=== PATIENT | male | born 1980 | race Caucasian/White ===

== ENCOUNTER 2025-06-22 08:53 | Emergency (ER) | payer BC, OTHER, SELFPAY ==
--- NOTE | ~2025-06-22 | US_ITS ---
EXAMINATION: US venous doppler [facility] DATE: 06/22/2025 10:20 INDICATION: Left lower limb pain. TECHNIQUE: Grayscale ultrasound images without and with compression and Doppler ultrasound images of the left lower extremity veins were obtained. COMPARISON: None. FINDINGS: The visualized portions of left common femoral vein, profunda (deep) femoral vein, femoral vein, popliteal vein, peroneal veins, posterior tibial veins, and greater saphenous vein outflow are patent. IMPRESSION: 1. No deep venous thrombosis. Reviewed, dictated and finalized at location E.
--- NOTE | ~2025-06-22 | XR_ITS ---
EXAMINATION: XR chest 2V, 06/22/2025 9:34 CDT HISTORY: CP X YESTERDAY COMPARISON: No comparisons available. Technique: 2 views obtained. Findings: The lungs are clear, no effusion. No pneumothorax. Heart is normal size. Mediastinal and hilar contours are within normal limits. Bony thorax no acute abnormality. Impression: No acute cardiopulmonary abnormality. Reviewed, dictated and finalized at location P. Impression: No acute cardiopulmonary abnormality.
[2025-06-22 08:58] VITALS: BP 162/105; PULSE 86; RESP 23; TEMP 37.1; O2SAT 99
--- NOTE | 2025-06-22 09:01 | ECG_ITS ---
Test Date: 2025-06-22 09:03:28 Measurements Intervals [place] Rate: 84 P: 26 HI: 166 QRS: -36 QRSD: 148 T: 9 QT: 408 QTc: 483 Interpretive Statements SINUS RHYTHM MARKED LEFT AXIS DEVIATION [QRS AXIS < -30] RIGHT BUNDLE BRANCH BLOCK [120+ ms QRS DURATION, UPRIGHT V1, 40+ ms S IN I/aVL/V4/V5/V6] No previous ECG available for comparison Electronically Signed On 06-22-2025 10:29:21 CDT by Dre Raya M.D.
--- NOTE | 2025-06-22 09:07 | ED.LOWEXIN ---
HPI - Extremity Injury (Lower) General Chief Complaint: Extremity Injury, Lower Stated Complaint: from UC, r/o DVT Time Seen by Provider: 06/22/25 09:07 Source: patient Mode of arrival: ambulatory Limitations: no limitations History of Present Illness HPI Narrative: This is a 45 year old male that presents to the ER for chest discomfort. Reports feels like a pressure. Has been constant since last night. Also reports left calf and lower leg pain. Reports a recent right shoulder surgery which concerned him and prompted him to be seen for possible blood clots. Denies fever, cough, shortness of breath, lower extremity edema. Related Data Home Medications ?Medication ?Instructions ?Recorded ?Confirmed ?Last Taken ?Type allopurinol 300 mg tablet 300 mg PO DAILY 06/22/25 06/22/25 06/22/25 History aspirin 81 mg capsule 81 mg PO DAILY 06/22/25 06/22/25 06/22/25 History diltiazem HCl 300 mg capsule,24 300 mg PO DAILY 06/22/25 06/22/25 06/22/25 History hr,extended release (Tiadylt ER) irbesartan 150 mg tablet 150 mg PO DAILY 06/22/25 06/22/25 06/22/25 History semaglutide 2 mg/dose (8 mg/3 mL) 2 mg subcut WEEKLY 06/22/25 06/22/25 06/20/25 History subcutaneous pen injector (Ozempic) Allergies Allergy/AdvReac Type Severity Reaction Status Date / Time adhesive tape AdvReac Rash Verified 06/22/25 09:11 meloxicam AdvReac Headache Verified 06/22/25 09:11 Review of Systems Review of Systems: All systems reviewed & are unremarkable except as noted in HPI and below PMFSH Past Medical History Medical History (Updated 06/22/25 @ 13:28 by Anais Delgado PA-C) History of gout History of hypertension Social History Social History (Updated 06/22/25 @ 10:02 by Anais Delgado PA-C) Smoking status: Never smoker Exam Narrative: GENERAL: Well-appearing, well-nourished, and in no acute distress. HEAD: Normocephalic, atraumatic. EYES: EOMI. NECK: Supple. No JVD CHEST: Clear to auscultation. No respiratory distress. No wheezes rales or rhonchi HEART: Regular rate and rhythm. No murmur heard. Normal peripheral pulses. EXTREMITIES: Normal range of motion. No edema. Normal DP pulses SKIN: Warm, dry, no rash. NEURO: No focal deficits. Alert and oriented x3. PSYCH: Normal mood and affect Course Course Emergency Course: patient updated on his workup. Resting comfortably Vital Signs Vital signs: Vital Signs Temperature 98.7 F 06/22/25 08:58 Pulse Rate 86 06/22/25 08:58 Respiratory Rate 23 H 06/22/25 08:58 Blood Pressure 162/105 H 06/22/25 08:58 Pulse Oximetry 99 06/22/25 08:58 Oxygen Delivery Autopap 06/22/25 08:58 Temperature 98.7 F 06/22/25 08:58 Pulse Rate 100 06/22/25 10:16 Respiratory Rate 16 06/22/25 10:16 Blood Pressure 145/110 H 06/22/25 10:16 Pulse Oximetry 97 06/22/25 10:16 Oxygen Delivery Autopap 06/22/25 08:58 MDM - Extremity Injury (Lower) MDM Narrative Medical decision making narrative: Patient presents to the ER for left calf pain, chest pain. Recent arthroscopic surgery on the right shoulder. His vitals are stable. Cbc and metabolic panel without concerning findings. EKG without acute ST changes, his baseline and 3 hour troponin are negative. Chest x-ray without acute cardiopulmonary abnormality. Left lower extremity venous Doppler without evidence of DVT. D dimer is not elevated. His heart score is 2. He is to follow up with PCP. He was given warnings to return to the ER Differential Diagnosis Differential diagnosis: Likely other (DVT, PE, NSTEMI, costochondritis, muscle strain, sciatica) Lab Data Attestation: I reviewed the patient's lab results. 06/22/25 09:07 06/22/25 09:07 Labs: Lab Results 06/22/25 06/22/25 Range/Units 09:07 11:52 WBC 9.2 (4.5-10.0) K/mm3 RBC 5.45 (4.6-6.20) M/mm3 Hgb 15.1 (14.0-18.0) g/dL Hct 44.6 (42.0-52.0) % MCV 81.8 (80-100) fl MCH 27.7 (26-34) pg MCHC 33.9 (32-36) g/dl RDW 12.9 (11.5-14.5) % Plt Count 294 (150-375) k/mm3 MPV 10.5 H (7.4-10.4) fl Immature Gran % (Auto) 1.2 H (0-0.5) % Neut % (Auto) 49.2 (45.5-73.1) % Lymph % (Auto) 36.3 (18.3-44.2) % [place] % (Auto) 9.6 H (2.6-8.5) % Eos % (Auto) 3.0 (0-4.4) % Baso % (Auto) 0.7 (0.2-1.2) % Lymph # (Auto) 3.32 H (0.9-3.2) K/mm3 [place] # (Auto) 0.9 H (0.1-0.6) K/mm3 Eos # (Auto) 0.3 (0-0.3) K/mm3 Baso # (Auto) 0.1 (0.0-0.1) K/mm3 Abs Immat Gran (auto) 0.11 H (0.00-0.031) K/mm3 Absolute Neuts (auto) 4.5 (1.3-6.7) K/mm3 Absolute Nucleated RBC 0.000 (0.0-0.012) K/mm3 Nucleated RBC % 0.0 (0.0-0.2) % PT 13.4 (11.1-14.7) Seconds INR 1.0 APTT 23.4 (22.3-36.8) Seconds D-Dimer < 0.27 (<0.48) ug/mL Sodium 139 (137-145) mmol/L Potassium 4.2 (3.4-5.0) mmol/L Chloride 105 (98-107) mmol/L Carbon Dioxide 25 (22-30) mmol/L Anion Gap 9 (4-12) mmol/L BUN 14 (9-20) mg/dL Creatinine 0.92 (0.7-1.3) mg/dL Estim Creat Clear Calc 127 ml/min Estimated GFR > 60 (59 - ) Glucose 100 (65-110) mg/dL Calcium 9.1 (8.4-10.2) mg/dL Total Bilirubin 0.6 (0.2-1.3) mg/dL AST 31 (17-59) U/L ALT 39 (6-50) U/L Alkaline Phosphatase 56 (38-126) U/L Troponin I < 0.012 < 0.012 (0.000-0.034) ng/mL Total Protein 7.8 (6.3-8.2) g/dL Albumin 4.7 (3.5-5.1) g/dL Lipase 90 (23-300) U/L Imaging Data Radiologist's impression: ITS Impressions Chest X-Ray 06/22/25 09:43 Impression: No acute cardiopulmonary abnormality. Venous Doppler Study 06/22/25 10:21 IMPRESSION: 1. No deep venous thrombosis. ECG Data EKG #1: ECG completion date: 06/22/25 EKG Interpretation: normal rate, sinus rhythm, RBBB and normal QT Critical Care Time Critical Care Time Critical Care Time: No Discharge Plan Discharge Clinical Impression: Pain of left calf, Chest pain Patient Disposition: Home Condition: Improved Instructions: Chest Pain (ED), Leg Pain (ED) Additional Instructions: Return to the emergency department if you experience fever, worsening chest pain, shortness of breath, abdominal pain with nausea and vomiting, weakness, numbness, or any other symptoms that are concerning to you. Follow up with your primary care doctor Patient Language: Kenyan Prescriptions: No Action Ozempic 2 mg/dose (8 mg/3 mL) pen injector 2 mg subcut WEEKLY diltiazem HCl [Tiadylt ER] 300 mg capsule,extended release 24 hr 300 mg PO DAILY irbesartan 150 mg tablet 150 mg PO DAILY allopurinol 300 mg tablet 300 mg PO DAILY aspirin 81 mg capsule 81 mg PO DAILY Follow-up/Referrals: Cherelle,Janie Chowdhury MD [Primary Care Provider, Unknown] Quality HEART score for chest pain patients History: slightly suspicious ECG: non specific repolarization disturbance/LBTB/PM Age: < or = to 45 years Risk factors: 1 or 2 risk factors Troponin: < or = to 1x normal limit Heart score: 2
[2025-06-22 09:14] LABS: Hematocrit 44.6 % (42.0-52.0); Hemoglobin 15.1 g/dL (14.0-18.0); Immature Granulocyte Percent A 1.2 % (0-0.5); Lymphocytes Absolute Auto 3.32 K/mm3 (0.9-3.2); Mean Corpuscular HGB Conc 33.9 g/dl (32-36); Mean Corpuscular Hemoglobin 27.7 pg (26-34); Mean Corpuscular Volume 81.8 fl (80-100); Nucleated Red Blood Cells Absolute Auto 0.000 K/mm3 (0.0-0.012); Nucleated Red Blood Cells Perc 0.0 % (0.0-0.2); Platelet Count Result 294 k/mm3 (150-375); Red Blood Count 5.45 M/mm3 (4.6-6.20); White Blood Count 9.2 K/mm3 (4.5-10.0)
--- OUTSIDE RECORDS SUMMARY | 2025-06-22 09:14 | XMS_ITS | Encounter Summary ---
Author Organization [facility] Address [address] [place] [address] Care Team Providers Care Media Production Operator Name Role Phone Unavailable Primary Care Provider Unavailabl e Encounter Details Date Type Department Care Team (Late st Contact Info) Description 07/20/1999 Outpatient Historical [facility] Janie Villarreal MD Social History Tobacco Use Types Packs/Day Years Used Date Smoking Tobacco: Never Assessed Sex and Gender Information Value Date Recorded Sex Assigned at Not on file Legal Sex Male 3:07 AM FAMILY PROGRAM SPECIALIST Gender Identity Not on file Sexual Orientation Not on file documented as of this encounter Plan of Treatment Not on file documented as of this encounter Visit Diagnoses Not on filedocumented in this encounter
--- OUTSIDE RECORDS SUMMARY | 2025-06-22 09:14 | XMS_ITS | Encounter Summary ---
Author Organization [facility] Address 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
--- OUTSIDE RECORDS SUMMARY | 2025-06-22 09:14 | XMS_ITS | Encounter Summary ---
[facility] Address 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
--- OUTSIDE RECORDS SUMMARY | 2025-06-22 09:14 | XMS_ITS | Encounter Summary ---
Author Organization [facility] Address [address] [place] [address] Care Team Providers Care Athletic Coordinator Name Role Phone Unavailable Primary Care Provider Unavailabl e Encounter Details Date Type Department Care Team (Late st Contact Info) Description 06/22/1999 Outpatient Historical [facility] Janie Villarreal MD Social History Tobacco Use Types Packs/Day Years Used Date Smoking Tobacco: Never Assessed Sex and Gender Information Value Date Recorded Sex Assigned at Not on file Legal Sex Male 3:07 AM CREDIT ANALYSIS MANAGER Gender Identity Not on file Sexual Orientation Not on file documented as of this encounter Plan of Treatment Not on file documented as of this encounter Visit Diagnoses Not on filedocumented in this encounter
--- OUTSIDE RECORDS SUMMARY | 2025-06-22 09:14 | XMS_ITS | Encounter Summary ---
Author Organization [facility] Address [address] [place] [address] Care Team Providers Care Weave Defect Charting Clerk Name Role Phone Unavailable Primary Care Provider Unavailabl e Encounter Details Date Type Department Care Team (Late st Contact Info) Description 03/01/1999 Outpatient Historical [facility] Zafar Barber Social History Tobacco Use Types Packs/Day Years Used Date Smoking Tobacco: Never Assessed Sex and Gender Information Value Date Recorded Sex Assigned at Not on file Legal Sex Male 3:07 AM OUTPATIENT INTERVIEWING CLERK Gender Identity Not on file Sexual Orientation Not on file documented as of this encounter Plan of Treatment Not on file documented as of this encounter Visit Diagnoses Not on filedocumented in this encounter
--- OUTSIDE RECORDS SUMMARY | 2025-06-22 09:14 | XMS_ITS | Encounter Summary ---
Author Organization [facility] Address 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
[2025-06-22] MEDS: ASPIRIN 81 MG CHEWABLE TABLET 243 MG PO (09:15)
--- OUTSIDE RECORDS SUMMARY | 2025-06-22 09:15 | XMS_ITS | Encounter Summary ---
Author Organization [facility] Address 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
--- OUTSIDE RECORDS SUMMARY | 2025-06-22 09:15 | XMS_ITS | Encounter Summary ---
Author Organization [facility] Address [address] [place] [address] Care Team Providers Care Retail Analytics Manager Name Role Phone Unavailable Primary Care Provider Unavailabl e Encounter Details Date Type Department Care Team (Late st Contact Info) Description 08/31/2000 Outpatient Historical [facility] Janie Villarreal MD Social History Tobacco Use Types Packs/Day Years Used Date Smoking Tobacco: Never Assessed Sex and Gender Information Value Date Recorded Sex Assigned at Not on file Legal Sex Male 3:07 AM INDUSTRIAL REHABILITATION CONSULTANT Gender Identity Not on file Sexual Orientation Not on file documented as of this encounter Plan of Treatment Not on file documented as of this encounter Visit Diagnoses Not on filedocumented in this encounter
--- OUTSIDE RECORDS SUMMARY | 2025-06-22 09:15 | XMS_ITS | Encounter Summary ---
Author Organization [facility] Address [address] [place] [address] Care Team Providers Care Telecommunication Systems Designer Name Role Phone Unavailable Primary Care Provider Unavailabl e Encounter Details Date Type Department Care Team (Late st Contact Info) Description 04/12/2000 Outpatient Historical [facility] Janie Villarreal MD Social History Tobacco Use Types Packs/Day Years Used Date Smoking Tobacco: Never Assessed Sex and Gender Information Value Date Recorded Sex Assigned at Not on file Legal Sex Male 3:07 AM EMAIL CAMPAIGN SPECIALIST Gender Identity Not on file Sexual Orientation Not on file documented as of this encounter Plan of Treatment Not on file documented as of this encounter Visit Diagnoses Not on filedocumented in this encounter
--- OUTSIDE RECORDS SUMMARY | 2025-06-22 09:15 | XMS_ITS | Clinical Summary ---
Author Organization [facility] Address [address] Attn: Epic Prelude ADT [place] [address] Care Team Providers Care Information Technology Specialist Name Role Phone Unavailable Primary Care Provider Unavailabl e Social History Tobacco Use Types Packs/Day Years Used Date Smoking Tobacco: Never Assessed Sex and Gender Information Value Date Recorded Sex Assigned at Not on file Legal Sex Male 3:07 AM LEASE ANALYST Gender Identity Not on file Sexual Orientation Not on file Plan of Treatment Health Maintenance Due Date Last Done Comments DTAP/TDAP/TD VACCINES (1 - Tdap) 1999 HEPATITIS B VACCINES (1 of 3 - 19+ 3-dose series) 04/25 HPV VACCINES (1 - 3-dose SCDM series) 2007 INFLUENZA VACCINE (#1) 2025 COLORECTAL SCREENING 2025 Colorectal Cancer Screening 2025 FIT-DNA Q 3 years 2025 FIT/FOBT Q 1 year 2025 Flex Sig/CT Colonography Q 5 years 2025
--- OUTSIDE RECORDS SUMMARY | 2025-06-22 09:15 | XMS_ITS | Encounter Summary ---
Author Organization [facility] Address [address] [place] [address] Care Team Providers Care Business Intelligence Analyst Name Role Phone Unavailable Primary Care Provider Unavailabl e Encounter Details Date Type Department Care Team (Late st Contact Info) Description 12/03/2000 Outpatient Historical [facility] Janie Villarreal MD Social History Tobacco Use Types Packs/Day Years Used Date Smoking Tobacco: Never Assessed Sex and Gender Information Value Date Recorded Sex Assigned at Not on file Legal Sex Male 3:07 AM SENIOR PROFESSIONAL SERVICES CONSULTANT Gender Identity Not on file Sexual Orientation Not on file documented as of this encounter Plan of Treatment Not on file documented as of this encounter Visit Diagnoses Not on filedocumented in this encounter
--- OUTSIDE RECORDS SUMMARY | 2025-06-22 09:15 | XMS_ITS | Encounter Summary ---
Author Organization [facility] Address [address] [place] [address] Care Team Providers Care Photographic Editor Name Role Phone Unavailable Primary Care Provider Unavailabl e Encounter Details Date Type Department Care Team (Late st Contact Info) Description 09/15/1999 Outpatient Historical [facility] Janie Villarreal MD Social History Tobacco Use Types Packs/Day Years Used Date Smoking Tobacco: Never Assessed Sex and Gender Information Value Date Recorded Sex Assigned at Not on file Legal Sex Male 3:07 AM NET C DEVELOPER Gender Identity Not on file Sexual Orientation Not on file documented as of this encounter Plan of Treatment Not on file documented as of this encounter Visit Diagnoses Not on filedocumented in this encounter
[2025-06-22 09:24] LABS: INR 1.0; Partial Thromboplastin Time 23.4 Seconds (22.3-36.8); Prothrombin Time 13.4 Seconds (11.1-14.7)
[2025-06-22 09:26] LABS: Alanine Aminotransferase 39 U/L (6-50); Albumin Level 4.7 g/dL (3.5-5.1); Alkaline Phosphatase 56 U/L (38-126); Anion Gap 9 mmol/L (4-12); Aspartate Amino Transferase 31 U/L (17-59); Bilirubin,Total 0.6 mg/dL (0.2-1.3); Blood Urea Nitrogen 14 mg/dL (9-20); Calcium 9.1 mg/dL (8.4-10.2); Carbon Dioxide 25 mmol/L (22-30); Chloride 105 mmol/L (98-107); Estimated CRCL calculation 127 ml/min; Estimated Glomerular Filt Rate > 60; Glucose 100 mg/dL (65-110); Lipase 90 U/L (23-300); Potassium 4.2 mmol/L (3.4-5.0); Sodium 139 mmol/L (137-145); Total Protein 7.8 g/dL (6.3-8.2)
[2025-06-22 09:38] LABS: Troponin I < 0.012 ng/mL (0.000-0.034)
[2025-06-22] MEDS: BELLADONNA ALK/PHENOB ELIX 10 ML, MAG HYDROX/ALUMINUM HYD/SIMETH 30 ML, LIDOCAINE 2% VI... PO (10:13)
[2025-06-22 10:16] VITALS: BP 145/110; PULSE 100; RESP 16; O2SAT 97
--- OUTSIDE RECORDS SUMMARY | 2025-06-22 10:30 | XMS_ITS | Clinical Summary ---
Author Organization [facility] Address [address] Attn: Epic Prelude ADT [place] [address] Care Team Providers Care Pipe Smoking Machine Operator Name Role Phone Unavailable Primary Care Provider Unavailabl e Social History Tobacco Use Types Packs/Day Years Used Date Smoking Tobacco: Never Assessed Sex and Gender Information Value Date Recorded Sex Assigned at Not on file Legal Sex Male 3:07 AM PIG CASTER Gender Identity Not on file Sexual Orientation [...]
--- OUTSIDE RECORDS SUMMARY | 2025-06-22 10:30 | XMS_ITS | Encounter Summary ---
Author Organization [facility] Address [address] [place] [address] Care Team Providers Care Pocket Cutter Name Role Phone Unavailable Primary Care Provider Unavailabl e Encounter Details Date Type Department Care Team (Late st Contact Info) Description 10/25/1999 Outpatient Historical [facility] Janie Villarreal MD Social History Tobacco Use Types Packs/Day Years Used Date Smoking Tobacco: Never Assessed Sex and Gender Information Value Date Recorded Sex Assigned at Not on file Legal Sex Male 3:07 AM MAINTENANCE MECHANIC ELEVATORS Gender Identity Not on file Sexual Orientation Not on file documented as of this encounter Plan of Treatment Not on file documented as of this encounter Visit Diagnoses Not on filedocumented in this encounter
--- OUTSIDE RECORDS SUMMARY | 2025-06-22 10:30 | XMS_ITS | Encounter Summary ---
Author Organization [facility] Address [address] [place] [address] Care Team Providers Care Linen Tech Name Role Phone Unavailable Primary Care Provider Unavailabl e Encounter Details Date Type Department Care Team (Late st Contact Info) Description 03/01/1999 Outpatient Historical [facility] Zafar Barber Social History Tobacco Use Types Packs/Day Years Used Date Smoking Tobacco: Never Assessed Sex and Gender Information Value Date Recorded Sex Assigned at Not on file Legal Sex Male 3:07 AM CHAR PULLER Gender Identity Not on file Sexual Orientation Not on file documented as of this encounter Plan of Treatment Not on file documented as of this encounter Visit Diagnoses Not on filedocumented in this encounter
--- OUTSIDE RECORDS SUMMARY | 2025-06-22 10:30 | XMS_ITS | Encounter Summary ---
Author Organization [facility] Address 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
--- OUTSIDE RECORDS SUMMARY | 2025-06-22 10:30 | XMS_ITS | Encounter Summary ---
Author Organization [facility] Address [address] [place] [address] Care Team Providers Care Advertising Traffic Manager Name Role Phone Unavailable Primary Care [...] on file Legal Sex Male 3:07 AM SALESFORCE SPECIALIST Gender Identity Not on file Sexual Orientation Not on file documented as of this encounter Plan of Treatment Not on file documented as of this encounter Visit Diagnoses Not on filedocumented in this encounter
--- OUTSIDE RECORDS SUMMARY | 2025-06-22 10:30 | XMS_ITS | Encounter Summary ---
Author Organization [facility] Address [address] [place] [address] Care Team Providers Care Silk Washing Machine Operator Name Role Phone Unavailable Primary [...] on file Legal Sex Male 3:07 AM A P SUPERVISOR Gender Identity Not on file Sexual Orientation Not on file documented as of this encounter Plan of Treatment Not on file documented as of this encounter Visit Diagnoses Not on filedocumented in this encounter
--- OUTSIDE RECORDS SUMMARY | 2025-06-22 10:30 | XMS_ITS | Encounter Summary ---
Author Organization [facility] Address [address] [place] [address] Care Team Providers Care Fisher Diving Name Role Phone Unavailable Primary Care Provider Unavailabl e Encounter Details Date Type Department Care Team (Late st Contact Info) Description 12/03/2000 Outpatient Historical [facility] Janie Villarreal MD Social History Tobacco Use Types Packs/Day Years Used Date Smoking Tobacco: Never Assessed Sex and Gender Information Value Date Recorded Sex Assigned at Not on file Legal Sex Male 3:07 AM VETERANS SERVICE REPRESENTATIVE Gender Identity Not on file Sexual Orientation Not on file documented as of this encounter Plan of Treatment Not on file documented as of this encounter Visit Diagnoses Not on filedocumented in this encounter
--- OUTSIDE RECORDS SUMMARY | 2025-06-22 10:30 | XMS_ITS | Encounter Summary ---
Author Organization [facility] Address [address] [place] [address] Care Team Providers Care Used Car Make Ready Worker Name Role Phone Unavailable Primary Care Provider Unavailabl e Encounter Details Date Type Department Care Team (Late st Contact Info) Description 09/15/1999 Outpatient Historical [facility] Janie Villarreal MD Social History Tobacco Use Types Packs/Day Years Used Date Smoking Tobacco: Never Assessed Sex and Gender Information Value Date Recorded Sex Assigned at Not on file Legal Sex Male 3:07 AM PEST LOCATOR Gender Identity Not on file Sexual Orientation Not on file documented as of this encounter Plan of Treatment Not on file documented as of this encounter Visit Diagnoses Not on filedocumented in this encounter
--- OUTSIDE RECORDS SUMMARY | 2025-06-22 10:30 | XMS_ITS | Encounter Summary ---
Author Organization [facility] Address [address] [place] [address] Care Team Providers Care Computer Language Coder Name Role Phone Unavailable Primary Care Provider Unavailabl e Encounter Details Date Type Department Care Team (Late st Contact Info) Description 06/08/1999 Outpatient Historical [facility] Janie Villarreal MD Social History Tobacco Use Types Packs/Day Years Used Date Smoking Tobacco: Never Assessed Sex and Gender Information Value Date Recorded Sex Assigned at Not on file Legal Sex Male 3:07 AM SOCIAL AND POLITICAL STUDIES PROFESSOR Gender Identity Not on file Sexual Orientation Not on file documented as of this encounter Plan of Treatment Not on file documented as of this encounter Visit Diagnoses Not on filedocumented in this encounter
--- OUTSIDE RECORDS SUMMARY | 2025-06-22 10:30 | XMS_ITS | Encounter Summary ---
Author Organization [facility] Address [address] [place] [address] Care Team Providers Care Database Operator Name Role Phone Unavailable Primary Care [...] on file Legal Sex Male 3:07 AM SUPERVISOR ENGINE REPAIR Gender Identity Not on file Sexual Orientation Not on file documented as of this encounter Plan of Treatment Not on file documented as of this encounter Visit Diagnoses Not on filedocumented in this encounter
--- OUTSIDE RECORDS SUMMARY | 2025-06-22 10:30 | XMS_ITS | Encounter Summary ---
Author Organization [facility] Address [address] [place] [address] Care Team Providers Care Cob Sawyer Name Role Phone Unavailable Primary Care Provider Unavailabl e Encounter Details Date Type Department Care Team (Late st Contact Info) Description 02/22/2000 Outpatient Historical [facility] Janie Villarreal MD Social History Tobacco Use Types Packs/Day Years Used Date Smoking Tobacco: Never Assessed Sex and Gender Information Value Date Recorded Sex Assigned at Not on file Legal Sex Male 3:07 AM PHYSIATRIST Gender Identity Not on file Sexual Orientation Not on file documented as of this encounter Plan of Treatment Not on file documented as of this encounter Visit Diagnoses Not on filedocumented in this encounter
--- OUTSIDE RECORDS SUMMARY | 2025-06-22 10:30 | XMS_ITS | Encounter Summary ---
Author Organization [facility] Address [address] [place] [address] Care Team Providers Care Well Testing Operator Name Role Phone Unavailable Primary Care [...] on file Legal Sex Male 3:07 AM COKE BURNER Gender Identity Not on file Sexual Orientation Not on file documented as of this encounter Plan of Treatment Not on file documented as of this encounter Visit Diagnoses Not on filedocumented in this encounter
--- NOTE | 2025-06-22 11:47 | ECG_ITS ---
Test Date: 2025-06-22 11:54:43 Measurements Intervals [place] Rate: 72 P: 23 MD: 172 QRS: -35 QRSD: 150 T: 3 QT: 436 QTc: 480 Interpretive Statements SINUS RHYTHM MARKED LEFT AXIS DEVIATION [QRS AXIS < -30] RIGHT BUNDLE BRANCH BLOCK [120+ ms QRS DURATION, UPRIGHT V1, 40+ ms S IN I/aVL/V4/V5/V6] Compared to ECG 06/22/2025 09:03:28 No significant changes Electronically Signed On 06-22-2025 13:27:14 CDT by Dre Raya M.D.
[2025-06-22 12:23] LABS: Troponin I < 0.012 ng/mL (0.000-0.034)
[2025-06-22 13:37] VITALS: BP 126/92; PULSE 71; RESP 18; O2SAT 99
== END 2025-06-22 13:37 | disposition home or self-care (01) ==
PROVIDERS: General Practice; Emergency Provider Physician Assistant; PCP Internal Medicine Rheumatology
DX: R07.9 Chest pain, unspecified (principal); M79.662 Pain in left lower leg
CPT/HCPCS: 36415; 71046; 80053; 83690; 84484; 85025; 85380; 85610; 85730; 93005; 93971; 99284; A9270